=== PATIENT | male | born 1970 | race Caucasian/White ===

== ENCOUNTER 2020-07-06 07:36 | Observation (INO) ==
[2020-07-06 08:24] LABS: Basophils # 0.1 10*3/uL (0.0-0.2); Basophils % 0.7 % (0.0-0.8); Eosinophils # 0.1 10*3/uL (0.0-0.87); Eosinophils % 1.4 % (0.00-10.9); Hemoglobin 17.6 GM/DL (14.0-18.0); Immature Granulocytes % 0.4 %; Immature Granulocytes Absolute 0.04 #; Lymphocytes # 1.8 10*3/uL (1.4-4.0); Lymphocytes % 17.2 % (21.2-54.2); Mean Corpuscular HGB Conc 33.8 GM/DL (32-36); Mean Platelet Volume 9.4 FL (9.6-12.0); Monocytes % 7.2 % (1.7-12.7); Neutrophils % 73.1 % (38.7-73.9); Platelet Count 268 T/CUMM (130-400); Red Blood Count 5.59 MC/CUMM (3.8-5.5); Red Cell Distribution Width 14.5 % (9.3-17.3); White Blood Count 10.3 T/CUMM (4-12)
[2020-07-06 08:28] LABS: Bilirubin,Urine Negative (Negative); Blood, Urine Negative (Negative); Glucose,Urine (UA) 50 mg/dL (Negative); Ketones,Urine Negative (Negative); Mucus,Urine Occasional /LPF (Occasional); Nitrite,Urine Negative (Negative); Protein,Urine Negative; Squamous Epithelial Cell,Urine Occasional /HPF (0-10); Urine Appearance CLEAR (Clear); Urine Color Yellow (Yellow); Urine Urobilinogen < 2.0 EU/DL (0.2-1.0); WBC,Urine <1 /HPF (0-6)
[2020-07-06 08:35] LABS: PT Patient Result 10.6 SECS (9.8-11.9); Partial Thromboplastin Time 29.5 SECS (23.9-33.8)
[2020-07-06 08:39] LABS: Barbiturates Screen,Urine Negative (Negative); Benzodiazepines Screen,Urine Negative (Negative); Cannabinoid Screen,Urine Negative (Negative); Opiate Screen,Urine Negative (Negative); Phencyclidine Screen,Urine Negative (Negative)
[2020-07-06 08:44] LABS: Alanine Aminotransferase 38 U/L (16-61); Alkaline Phosphatase 120 U/L (45-117); Aspartate Amino Transferase 27 U/L (0-37); Blood Urea Nitrogen 11 MG/DL (7-18); Calcium 9.1 MG/DL (8.5-10.1); Estimated Glom Filtration Rate 95 ML/MIN; Glucose 159 MG/DL (74-106); Total Protein 7.7 G/DL (6.4-8.3)
[2020-07-06] MEDS ORDERED: cloNIDine 0.1 MG TABLET PO STA (09:47)
[2020-07-06] MEDS ORDERED: PHENYTOIN INJ 1,000 MG in SODIUM CHLORIDE 0.9% 100 ML IV STA (11:53)
[2020-07-06] MEDS ORDERED: ONDANSETRON 4 MG/2 ML VIAL IV PRN (12:51)
[2020-07-06] MEDS ORDERED: DOCUSATE SODIUM 100 MG CAPSULE PO PRN (12:51)
[2020-07-06] MEDS ORDERED: DEXTROSE 50% 25 GM/50 ML VIAL IV PRN (12:51)
[2020-07-06] MEDS ORDERED: GLUCAGON 1 MG VIAL IM PRN (12:51)
[2020-07-06] MEDS ORDERED: hydrALAZINE 20 MG/1 ML VIAL IV PRN (12:51)
[2020-07-06] MEDS ORDERED: ACETAMINOPHEN 325 MG TABLET PO PRN (12:51)
[2020-07-06] MEDS ORDERED: ENOXAPARIN 40 MG/0.4 ML SYRINGE SUBCUT SCH (13:00)
[2020-07-06 13:28] LABS: Risk Ratio 5.58; Thyroid Stimulating Hormone 1.8 uIU/ml (0.358-3.74); VLDL CHOLESTEROL 57.6 MG/DL
[2020-07-06] MEDS: hydroCHLOROthiazide 12.5 MG CAPSULE PO SCH (15:21)
[2020-07-06] MEDS ORDERED: PHENYTOIN ER 100 MG CAPSULE PO SCH (21:00)
[2020-07-06] MEDS ORDERED: ATORVASTATIN 10 MG TABLET PO SCH (21:00)
[2020-07-06] MEDS: METOPROLOL TARTRATE 25 MG TABLET PO SCH (21:11)
[2020-07-07] MEDS ORDERED: PHENYTOIN ER 100 MG CAPSULE PO SCH (00:01)
[2020-07-07 04:21] LABS: Basophils # 0.1 10*3/uL (0.0-0.2); Basophils % 0.6 % (0.0-0.8); Eosinophils # 0.4 10*3/uL (0.0-0.87); Eosinophils % 3.1 % (0.00-10.9); Hematocrit 53.3 VOL% (42.0-52.0); Hemoglobin 17.8 GM/DL (14.0-18.0); Immature Granulocytes % 0.3 %; Immature Granulocytes Absolute 0.04 #; Lymphocytes # 2.7 10*3/uL (1.4-4.0); Lymphocytes % 21.4 % (21.2-54.2); Mean Corpuscular HGB Conc 33.4 GM/DL (32-36); Mean Corpuscular Volume 91.1 FL (87-102); Mean Platelet Volume 9.8 FL (9.6-12.0); Neutrophils % 67.6 % (38.7-73.9); Platelet Count 272 T/CUMM (130-400); Red Blood Count 5.85 MC/CUMM (3.8-5.5); Red Cell Distribution Width 14.5 % (9.3-17.3); White Blood Count 12.4 T/CUMM (4-12)
[2020-07-07 04:44] LABS: Calcium 9.4 MG/DL (8.5-10.1); Osmolality,Calculated 269.1 MOS/KG (273-304)
[2020-07-07 08:08] VITALS: BP 122/74
[2020-07-07] MEDS ORDERED: ASPIRIN CHEW 81 MG TABLET PO SCH (09:00)
[2020-07-07] MEDS ORDERED: PANTOPRAZOLE 40 MG TABLET PO SCH (09:00)
[2020-07-07] MEDS: hydroCHLOROthiazide 12.5 MG CAPSULE PO SCH (09:03)
[2020-07-07] MEDS: METOPROLOL TARTRATE 25 MG TABLET PO SCH (09:03)
== END 2020-07-07 12:35 | disposition home or self-care (01) ==
LOC: N.ED 07:36 → N.EDINP 07:36 → N.3E 16:39
PROVIDERS: ADMIT Internal Medicine; ATTEND Internal Medicine

== ENCOUNTER 2020-11-26 10:58 | Observation (INO) ==
[2020-11-26 14:16] LABS: Basophils # 0.1 10*3/uL (0.0-0.2); Basophils % 0.5 % (0.0-0.8); Eosinophils # 0.3 10*3/uL (0.0-0.87); Eosinophils % 2.2 % (0.00-10.9); Immature Granulocytes % 0.5 %; Immature Granulocytes Absolute 0.06 #; Lymphocytes # 1.8 10*3/uL (1.4-4.0); Lymphocytes % 15.8 % (21.2-54.2); Mean Corpuscular HGB Conc 34.6 GM/DL (32-36); Mean Corpuscular Volume 93.5 FL (87-102); Mean Platelet Volume 9.3 FL (9.6-12.0); Monocytes % 6.4 % (1.7-12.7); Neutrophils % 74.6 % (38.7-73.9); Platelet Count 304 T/CUMM (130-400); Red Blood Count 5.56 MC/CUMM (3.8-5.5); Red Cell Distribution Width 14.3 % (9.3-17.3); White Blood Count 11.5 T/CUMM (4-12)
[2020-11-26 14:26] LABS: PT Patient Result 10.3 SECS (9.8-11.9); Partial Thromboplastin Time 31.1 SECS (23.9-33.8)
[2020-11-26] MEDS ORDERED: SODIUM CHLORIDE 0.9% 2,250 ML IV ONE (14:35)
[2020-11-26 14:41] LABS: Barbiturates Screen,Urine Negative (Negative); Benzodiazepines Screen,Urine Negative (Negative); Cannabinoid Screen,Urine Negative (Negative); Opiate Screen,Urine Negative (Negative); Phencyclidine Screen,Urine Negative (Negative)
[2020-11-26 14:43] LABS: Alanine Aminotransferase 37 U/L (16-61); Albumin 3.7 G/DL (3.4-5.0); Alkaline Phosphatase 184 U/L (45-117); Aspartate Amino Transferase 20 U/L (0-37); Bilirubin,Total < 0.39 MG/DL (0.2-1.0); Blood Urea Nitrogen 13 MG/DL (7-18); Calcium 8.9 MG/DL (8.5-10.1); Carbon Dioxide 27 MMOL/L (21-32); Estimated Glom Filtration Rate 109 ML/MIN; Glucose 132 MG/DL (74-106); Osmolality,Calculated 271.1 MOS/KG (273-304); Potassium 3.5 MMOL/L (3.5-5.1); Sodium 135 MMOL/L (136-145); Total Protein 7.8 G/DL (5.0-7.5)
[2020-11-26] MEDS: NICOTINE 21 MG/24 HR PATCH TRANSDERM SCH (15:22)
[2020-11-26] MEDS ORDERED: ACETAMINOPHEN 325 MG TABLET PO PRN (15:59)
[2020-11-26] MEDS ORDERED: GLUCAGON 1 MG VIAL IM PRN (15:59)
[2020-11-26] MEDS ORDERED: DEXTROSE 50% 25 GM/50 ML VIAL IV PRN (15:59)
[2020-11-26] MEDS ORDERED: ONDANSETRON 4 MG/2 ML VIAL IV PRN (15:59)
[2020-11-26] MEDS ORDERED: LABETALOL 20 MG/4 ML SYRINGE IV PRN (16:24)
[2020-11-26 17:24] LABS: Risk Ratio 5.97; VLDL CHOLESTEROL 148.8 MG/DL
[2020-11-26] MEDS ORDERED: METOPROLOL TARTRATE 25 MG TABLET PO PRN (18:12)
[2020-11-26] MEDS: GABAPENTIN 300 MG CAPSULE PO SCH (20:48)
[2020-11-26] MEDS: BENZTROPINE 1 MG TABLET PO SCH (20:49)
[2020-11-26] MEDS ORDERED: PHENYTOIN ER 100 MG CAPSULE PO SCH (21:00)
[2020-11-26] MEDS ORDERED: ATORVASTATIN 40 MG TABLET PO SCH (21:00)
[2020-11-26] MEDS ORDERED: PANTOPRAZOLE 40 MG TABLET PO ONE (21:09)
[2020-11-27] MEDS ORDERED: FENOFIBRATE 145 MG TABLET PO SCH (09:00)
[2020-11-27] MEDS ORDERED: CLOPIDOGREL 75 MG TABLET PO SCH (09:00)
[2020-11-27] MEDS ORDERED: CITALOPRAM 20 MG TABLET PO SCH (09:00)
[2020-11-27] MEDS ORDERED: ASPIRIN CHEW 81 MG TABLET PO SCH (09:00)
[2020-11-27] MEDS: GABAPENTIN 300 MG CAPSULE PO SCH ×2 (09:08→15:31)
[2020-11-27] MEDS: NICOTINE 21 MG/24 HR PATCH TRANSDERM SCH (09:09)
[2020-11-27] MEDS: BENZTROPINE 1 MG TABLET PO SCH (09:09)
[2020-11-27 12:25] VITALS: BP 124/73
== END 2020-11-27 17:00 | disposition home or self-care (01) ==
LOC: N.TELEN 10:58 → N.ED 10:58 → SUATTDRO 15:59 → N.TELEN 17:18
PROVIDERS: ADMIT Emergency Medicine; ATTEND Internal Medicine